=== PATIENT | male | born 1955 | race Caucasian/White ===

== ENCOUNTER → 2017-09-15 | Outpatient (CLI) | payer BC ==
[~2017-09-15] MED LIST: ADVAIR INHALER IH; ALB6.7R INH; ASPI81TA94 PO; CYC10 PO; HYDR500C2 PO; LOR5 PO; MOMR ENA; MON10 PO; ZYRTEC
== END ==
LOC: LAB 11:08
PROVIDERS: ATTEND Internal Medicine Hematology
DX: D75.1 Secondary polycythemia (principal)
CPT/HCPCS: 36415; 82040; 82247; 82310; 82374; 82435; 82565; 82947; 84075; 84132; 84155; 84295; 84450; 84460; 84520; 85027

== ENCOUNTER → 2017-09-22 | Outpatient (CLI) | payer BC | LOC: LAB 15:07 | PROVIDERS: ATTEND Nurse Practitioner Family | DX: B18.2 Chronic viral hepatitis C (principal) | CPT/HCPCS: 36415; 87522 ==

== ENCOUNTER → 2017-10-13 | Outpatient (CLI) | payer BC | LOC: LAB 15:53 | PROVIDERS: ATTEND Internal Medicine Hematology | DX: D75.1 Secondary polycythemia (principal) | CPT/HCPCS: 36415; 82040; 82247; 82310; 82374; 82435; 82565; 82947; 84075; 84132; 84155; 84295; 84450; 84460; 84520; 85027 ==

== ENCOUNTER → 2017-11-14 | Outpatient (CLI) | payer BC | LOC: LAB 15:02 | PROVIDERS: ATTEND Internal Medicine Hematology | DX: D75.1 Secondary polycythemia (principal) | CPT/HCPCS: 36415; 85027 ==

== ENCOUNTER 2017-11-17 14:19 | Outpatient (RCR) | payer BC ==
[2017-08-24 08:31] VITALS: BP 134/85
--- NOTE | 2017-08-24 18:00 | ONCOLOGY FOLLOW UP NOTE ---
EVENT DATE: August 24, 2017 DIAGNOSES 1. 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 Asthma CHIEF COMPLAINT The patient is here today for followup of his polycythemia vera. HEMATOLOGY HISTORY The patient is a 61-year-old male, who is followed by Dr. Manav Woods, and the patient was found to have erythrocytosis by blood test. His CBC on January 02, 2014 revealed a white blood cell count of 15.3, hemoglobin 20.1, hematocrit 61.7 , platelet count 491,000. The patient had a workup for erythrocytosis, including erythropoietin, which came at low normal at 2.8, and the normal starts from 2.6. Iron studies showed serum ferritin of 86, serum iron 62, total iron-binding capacity (TIBC) 409 and iron saturation 15%. JAK2 mutation analysis for exon 12 mutation and exon 13 mutation were negative but JAK2 mutation for V617F mutation was not done. JAK2 analysis came back positive for V617F mutation, confirming the diagnosis of polycythemia vera. The patient started treatment with hydroxyurea on December 19, 2014. HISTORY OF PRESENT ILLNESS Patient is here today for followup of his polycythemia vera on hydroxyurea therapy. He is complaining of cough expectoration and shortness of breath from bronchitis. He is weak, tired and fatigued from recent bronchitis. Other than that he is really stable. PAST MEDICAL HISTORY 1. Asthma 2. Erythrocytosis PAST SURGICAL HISTORY Tonsillectomy FAMILY HISTORY Negative for cancer or blood diseases. SOCIAL HISTORY The patient is with two sons. 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 He quit smoking 25 years ago after one pack a day for 12 to 15 years. He chews tobacco, one can per week, but denies any use of alcohol or illicit drugs. MEDICATIONS 1. Hydroxyurea 500 mg daily. 2. Nasonex 17 gm spray daily. 3. Aspirin 81 mg daily. 4. Singulair 10 mg daily. 5. Advair inhalation twice daily. ALLERGIES NO KNOWN DRUG ALLERGIES REVIEW OF SYSTEMS CONSTITUTIONAL: No appetite or weight change. No fever, chills or sweating. No recent infection. HEENT: Ears: No tinnitus or hearing problem. Nose: The patient has nasal discharge. Throat: No sore throat or mouth ulcers. Eyes: No diplopia or visual changes. RESPIRATORY: Patient has cough with expectoration and shortness of breath from recent bronchitis. CARDIOVASCULAR: No chest pain, orthopnea, or paroxysmal nocturnal dyspnea (PND) . No edema. No palpitations. GASTROINTESTINAL: He has constipation. GENITOURINARY: The patient has some prostatic symptoms. MUSCULOSKELETAL: She has pain in the feet occasionally. NEUROLOGICAL: No tingling or numbness in the hands or feet. No headaches or convulsions. HEMATOLOGIC/LYMPHATIC: He is weak, tired and fatigued. SKIN: No skin rash or lumps. PSYCHIATRIC: No anxiety or depression. PHYSICAL EXAMINATION GENERAL: Looks stable. Well-developed, well-nourished, and in no acute distress. VITAL SIGNS: Blood pressure 134/85, pulse 86 per minute, respirations 16 per minute, temperature 97.4, pulse ox 92% on room air. HEENT: Head: Atraumatic. No sinus tenderness to palpation. Eyes: No icterus or conjunctivitis. Mouth and throat: No oral thrush or mucositis. NECK: Supple. No cervical or supraclavicular lymphadenopathy. LUNGS: Clear to auscultation and percussion bilaterally. HEART: Regular rate and rhythm. No gallops, murmurs, clicks or rubs. ABDOMEN: Soft and lax. No tenderness. No hepatosplenomegaly. No masses. EXTREMITIES: No cyanosis, clubbing or edema. LYMPHATICS: No peripheral lymphadenopathy. NEUROLOGICAL: Conscious, alert and oriented times three. No focal motor or sensory deficits. PSYCHIATRIC: Mood and affect appear normal. SKIN: No skin rash, bruise or purpuric eruption. DIAGNOSTIC DATA CBC showed a white count of 9.6, hemoglobin 14.1, hematocrit 44.8, platelet counts 375,000. ASSESSMENT 1. Polycythemia vera with positive JAK2 mutation for V617F mutation. Patient started phlebotomy sessions January 10, 2014. He started hydroxyurea December 19, 2014. I am planning to increase the dose of hydroxyurea to 500 mg for five days, and 1000 mg for two days, as his current hematocrit is 44.8%. I am planning to continue aspirin 81 mg daily. I will see him again in three months with CBC and chem panel at that time. 2. Transaminitis. The patient had a history of alcohol abuse, but he was diagnosed recently with hepatitis C virus, and he is going to receive Harvoni very soon. PLAN 1. Hydroxyurea 500 mg for five days, and 1000 mg for two days. 2. Phlebotomize 500 mL of blood if hematocrit above 45%. 3. Continue baby aspirin 81 mg daily. 4. Patient to return in three months with CBC and chem panel. 5. Patient is to contact us for any new concerns or complaints. BLANCAD
[~2017-11-17] VITALS: Ht 177.8 cm; Wt 93.7 kg
[2017-11-17 14:34] VITALS: BP 132/98
== END 2017-11-21 ==
LOC: SPU 14:19
PROVIDERS: ATTEND Internal Medicine Hematology
DX: D45 Polycythemia vera (principal); B19.20 Unspecified viral hepatitis C without hepatic coma; J45.909 Unspecified asthma, uncomplicated; Z79.82 Long term (current) use of aspirin; Z79.899 Other long term (current) drug therapy; F17.220 Nicotine dependence, chewing tobacco, uncomplicated; R06.02 Shortness of breath; R05 Cough; R53.83 Other fatigue; R53.1 Weakness
CPT/HCPCS: 82040; 82247; 82310; 82374; 82435; 82565; 82947; 84075; 84132; 84155; 84295; 84450; 84460; 84520; 85014; 99212

== ENCOUNTER → 2017-12-20 | Outpatient (REF) | payer BC ==
[2017-12-20 10:29] LABS: PLATELET COUNT, AUTOMATED 256 K/uL (150-450)
== END ==
LOC: ZZSENDIN 10:17
PROVIDERS: ATTEND Physician Assistant
DX: R53.83 Other fatigue (principal)
CPT/HCPCS: 85025

== ENCOUNTER → 2018-01-04 | Outpatient (CLI) | payer BC ==
[~2018-01-04] MED LIST changes: +IOPAMIDOL 76% 50 ML INFUS BTL 50 ML ONE; +IOPAMIDOL 76% 75 ML INFUS BTL 75 ML ONE
--- NOTE | 2018-01-04 09:08 | RADIOLOGY IMAGING REPORT ---
FAC[place] [facility] [place] NAME: Sukhwinder Grijalva : 1955 MR: [id number] V: [id number] EXAM DATE: ORDERING PHYSICIAN: YONAS SCHWARTZ TECHNOLOGIST: Location: [facility] Patient: Sukhwinder Grijalva : 1955 Visit/Account:[id number] Date of Sevice: 01/04/2018 ABDOMEN/PELVIS WITH CONTRAST HISTORY: Abnormal liver function tests TECHNIQUE: Following administration of IV contrast contiguous axial images acquired through the abdom en/pelvis. Coronal and sagittal reformatting also performed. Dose Lowering Technique One of the following dose optimization techniques was utilized in the performance of this exam: Autom ated exposure control; adjustment of the mA and/or kV according to the patient's size; or use of an i terative reconstruction technique. Specific details can be referenced in the facility's radiology C T exam operational policy. CONTRAST: 75 mL Isovue-370 COMPARISON: December 29, 2011 FINDINGS: Visualized lung bases: 2 mm subpleural nodule anterolateral aspect of the left lower lobe appears st able Hepatobiliary: Liver is enlarged measuring 19 cm in length Spleen: Accessory splenule , spleen is borderline enlarged but unchanged Adrenals: Negative. Pancreas: Negative. Kidneys ureters or bladder: Kidneys appear unremarkable. There is irregular thickening of the [employer] ior aspect of the bladder wall best appreciated on the sagittal images Genitalia: Coarse calcification seen within the prostate gland GI: There is mild diverticulosis left-sided colon although no CT evidence of acute diverticulitis. The appendix is visualized and does not appear inflamed Vessels/spaces/nodes: Negative. Bones/soft tissues: No aggressive appearing bone lesions are seen. There is an umbilical hernia con taining fat Additional findings: None pertinent. IMPRESSION: Hepatomegaly Spleen is borderline enlarged but unchanged There is irregular thickening of the posterior aspect of the bladder wall best appreciated on the sag ittal images. Cystoscopy may be helpful depending upon the clinical presentation Mild diverticulosis left-sided colon although no CT evidence of acute diverticulitis Small umbilical hernia containing fat Report Dictated By: Alma Delia Mcintosh MD at 01/04/2018 8:56 AM Report E-Signed By: Alma Delia Mcintosh MD at 01/04/2018 9:05 AM WSN:[email or web address]
== END ==
LOC: CT 07:03
PROVIDERS: ATTEND Physician Assistant
DX: R94.5 Abnormal results of liver function studies (principal); K57.90 Diverticulosis of intestine, part unspecified, without perforation or abscess without bleeding; K42.9 Umbilical hernia without obstruction or gangrene
CPT/HCPCS: 74177; Q9967

== ENCOUNTER → 2018-01-12 | Outpatient (CLI) | payer BC ==
[~2018-01-12] MED LIST changes: -IOPAMIDOL 76% 50 ML INFUS BTL 50 ML ONE; -IOPAMIDOL 76% 75 ML INFUS BTL 75 ML ONE
== END ==
LOC: SPU 10:14
PROVIDERS: ATTEND Physician Assistant
DX: D75.1 Secondary polycythemia (principal)

== ENCOUNTER → 2018-01-23 | Outpatient (CLI) | payer BC | LOC: LAB 08:42 | PROVIDERS: ATTEND Nurse Practitioner Family | DX: B18.2 Chronic viral hepatitis C (principal) | CPT/HCPCS: 36415; 87522 ==

== ENCOUNTER 2018-02-16 15:15 | Outpatient (RCR) | payer BC ==
[2017-11-23 08:15] VITALS: BP 140/94
--- NOTE | 2017-11-23 16:04 | ONCOLOGY FOLLOW UP NOTE ---
EVENT DATE: November 23, 2017 DIAGNOSES 1. 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 Asthma CHIEF COMPLAINT The patient is here today for followup of his polycythemia vera. HEMATOLOGY HISTORY The patient is a 62-year-old male, who is followed by Dr. Manav Woods, and the patient was found to have erythrocytosis by blood test. His CBC on January 02, 2014 revealed a white blood cell count of 15.3, hemoglobin 20.1, hematocrit 61.7 , platelet count 491,000. The patient had a workup for erythrocytosis, including erythropoietin, which came at low normal at 2.8, and the normal starts from 2.6. Iron studies showed serum ferritin of 86, serum iron 62, total iron-binding capacity (TIBC) 409 and iron saturation 15%. JAK2 mutation analysis for exon 12 mutation and exon 13 mutation were negative but JAK2 mutation for V617F mutation was not done. JAK2 analysis came back positive for V617F mutation, confirming the diagnosis of polycythemia vera. The patient started treatment with hydroxyurea on December 19, 2014. HISTORY OF PRESENT ILLNESS Patient is here today for followup of his polycythemia vera on hydroxyurea. He is doing very fine currently and he is asymptomatic. He has been treated recently for hepatitis C virus with Harvoni, and as per patient, he completed his treatment about three weeks ago. PAST MEDICAL HISTORY 1. Asthma 2. Erythrocytosis PAST SURGICAL HISTORY Tonsillectomy FAMILY HISTORY Negative for cancer or blood diseases. SOCIAL HISTORY The patient is with two sons. 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 He quit smoking 25 years ago after one pack a day for 12 to 15 years. He chews tobacco, one can per week, but denies any use of alcohol or illicit drugs. MEDICATIONS 1. Hydroxyurea 500 mg once daily for four days and 1000 mg for three days. 2. Nasonex 17 gm spray daily. 3. Aspirin 81 mg daily. 4. Singulair 10 mg daily. 5. Advair inhalation twice daily. ALLERGIES NO KNOWN DRUG ALLERGIES REVIEW OF SYSTEMS CONSTITUTIONAL: No appetite or weight change. No fever, chills or sweating. No recent infection. HEENT: Ears: No tinnitus or hearing problem. Nose: The patient has nasal discharge. Throat: No sore throat or mouth ulcers. Eyes: No diplopia or visual changes. RESPIRATORY: Patient has cough with expectoration and shortness of breath from recent bronchitis. CARDIOVASCULAR: No chest pain, orthopnea, or paroxysmal nocturnal dyspnea (PND) . No edema. No palpitations. GASTROINTESTINAL: He has constipation. GENITOURINARY: The patient has some prostatic symptoms. MUSCULOSKELETAL: She has pain in the feet occasionally. NEUROLOGICAL: No tingling or numbness in the hands or feet. No headaches or convulsions. HEMATOLOGIC/LYMPHATIC: He is weak, tired and fatigued. SKIN: No skin rash or lumps. PSYCHIATRIC: No anxiety or depression. PHYSICAL EXAMINATION GENERAL: Looks stable. Well-developed, well-nourished, and in no acute distress. VITAL SIGNS: Blood pressure 140/94, pulse 84 per minute, respirations 16 per minute, temperature 97.1, pulse ox 91% on room air. HEENT: Head: Atraumatic. No sinus tenderness to palpation. Eyes: No icterus or conjunctivitis. Mouth and throat: No oral thrush or mucositis. NECK: Supple. No cervical or supraclavicular lymphadenopathy. LUNGS: Clear to auscultation and percussion bilaterally. HEART: Regular rate and rhythm. No gallops, murmurs, clicks or rubs. ABDOMEN: Soft and lax. No tenderness. No hepatosplenomegaly. No masses. EXTREMITIES: No cyanosis, clubbing or edema. LYMPHATICS: No peripheral lymphadenopathy. NEUROLOGICAL: Conscious, alert and oriented times three. No focal motor or sensory deficits. PSYCHIATRIC: Mood and affect appear normal. SKIN: No skin rash, bruise or purpuric eruption. DIAGNOSTIC DATA CBC showed a white count of 8000, hemoglobin 15.1, hematocrit 48.2, platelet counts 163,000. MCV 72.9. Chem panel totally normal except AST 91, ALT 179. ASSESSMENT 1. Polycythemia vera with positive JAK2 mutation for V617F mutation. Patient started phlebotomy sessions January 10, 2014, and he started hydroxyurea December 19, 2014. His hematocrit recently is high at 48.2%, and patient received a phlebotomy session at that time. He had some symptoms before the phlebotomy with tingling in his fingertips, which resolved after the phlebotomy. I am planning to increase his hydroxyurea so the patient will take 500 mg twice daily for three days, and once daily for four days. I am planning to see him again in three months with CBC and chem panel, and I will continue to do a phlebotomy if the hematocrit is above 45%. 2. Transaminitis. The patient was recently diagnosed with hepatitis C virus infection, and as per patient, he received Harvoni and completed the course about three weeks ago, but his AST and ALT remain high. AST 91 and ALT 179. I advised the patient to contact Dr. Woods and to follow with him for that. PLAN 1. Hydroxyurea 500 mg for four days, and 1000 mg for three days. 2. Phlebotomize 500 mL of blood if hematocrit is above 45%. 3. Continue baby aspirin 81 mg daily. 4. Patient to return in three months with CBC and chem panel. 5. Patient is to contact us for any new concerns or complaints. BLANCAD
[2017-12-18 15:32] VITALS: BP 147/109
[2017-12-19 15:09] VITALS: BP 155/101
[2018-01-12 12:36] VITALS: BP 133/95
[2018-01-12 12:44] LABS: PLATELET COUNT, AUTOMATED 166 K/uL (150-450)
[2018-01-19 15:44] LABS: PLATELET COUNT, AUTOMATED 634 K/uL (150-450)
[2018-01-29 15:27] LABS: PLATELET COUNT, AUTOMATED 479 K/uL (150-450)
[2018-02-16 15:49] VITALS: BP 150/98
== END 2018-02-20 ==
LOC: SPU 15:15
PROVIDERS: ATTEND Internal Medicine Hematology
DX: D45 Polycythemia vera (principal); B19.20 Unspecified viral hepatitis C without hepatic coma; J45.909 Unspecified asthma, uncomplicated; Z79.82 Long term (current) use of aspirin; Z79.899 Other long term (current) drug therapy; F17.220 Nicotine dependence, chewing tobacco, uncomplicated; R06.02 Shortness of breath; R05 Cough; R53.83 Other fatigue; R53.1 Weakness
CPT/HCPCS: 36415; 82040; 82247; 82310; 82374; 82435; 82565; 82947; 84075; 84132; 84155; 84295; 84450; 84460; 84520; 85014; 85025; 85027; 99195; 99212

== ENCOUNTER → 2018-02-16 | Outpatient (CLI) | payer BC | LOC: SPU 15:25 | PROVIDERS: ATTEND Nurse Practitioner Family | DX: R79.89 Other specified abnormal findings of blood chemistry (principal); B18.2 Chronic viral hepatitis C | CPT/HCPCS: 82040; 82247; 82248; 82728; 83516; 83550; 84075; 84155; 84450; 84460; 84466; 86038; 86705; 86706; 86708; 87340; 87522 ==

== ENCOUNTER 2018-04-26 13:44 | Outpatient (RCR) | payer BC ==
[2018-03-01 08:01] VITALS: BP 149/96
[2018-03-01 09:08] LABS: PLATELET COUNT, AUTOMATED 532 K/uL (150-450)
--- NOTE | 2018-03-01 10:01 | EL-TARABILY ONCOLOGY NOTE ---
EVENT DATE: March 01, 2018 DIAGNOSES 1. 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 Asthma CHIEF COMPLAINT The patient is here today for followup of his polycythemia vera. HEMATOLOGY HISTORY The patient is a 62-year-old male, who is followed by Dr. Manav Woods, and the patient was found to have erythrocytosis by blood test. His CBC on January 02, 2014 revealed a white blood cell count of 15.3, hemoglobin 20.1, hematocrit 61.7 , platelet count 491,000. The patient had a workup for erythrocytosis, including erythropoietin, which came at low normal at 2.8, and the normal starts from 2.6. Iron studies showed serum ferritin of 86, serum iron 62, total iron-binding capacity (TIBC) 409 and iron saturation 15%. JAK2 mutation analysis for exon 12 mutation and exon 13 mutation were negative but JAK2 mutation for V617F mutation was not done. JAK2 analysis came back positive for V617F mutation, confirming the diagnosis of polycythemia vera. The patient started treatment with hydroxyurea on December 19, 2014. HISTORY OF PRESENT ILLNESS Patient is here today for followup of his polycythemia vera with recent discontinuation of his hydroxyurea because of elevation of liver enzymes. The patient is currently asymptomatic. He denies any alcohol intake and he is sober for years. He was treated recently with hepatitis C virus with Harvoni. PAST MEDICAL HISTORY 1. Asthma 2. Erythrocytosis PAST SURGICAL HISTORY Tonsillectomy FAMILY HISTORY Negative for cancer or blood diseases. SOCIAL HISTORY The patient is with two sons. 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 He quit smoking 25 years ago after one pack a day for 12 to 15 years. He chews tobacco, one can per week, but denies any use of alcohol or illicit drugs. MEDICATIONS 1. Hydroxyurea 500 mg once daily for four days and 1000 mg for three days. 2. Nasonex 17 gm spray daily. 3. Aspirin 81 mg daily. 4. Singulair 10 mg daily. 5. Advair inhalation twice daily. ALLERGIES NO KNOWN DRUG ALLERGIES REVIEW OF SYSTEMS CONSTITUTIONAL: No appetite or weight change. No fever, chills or sweating. No recent infection. HEENT: Ears: No tinnitus or hearing problem. Nose: The patient has nasal discharge. Throat: No sore throat or mouth ulcers. Eyes: No diplopia or visual changes. RESPIRATORY: Patient has cough with expectoration and shortness of breath from recent bronchitis. CARDIOVASCULAR: No chest pain, orthopnea, or paroxysmal nocturnal dyspnea (PND) . No edema. No palpitations. GASTROINTESTINAL: He has constipation. GENITOURINARY: The patient has some prostatic symptoms. MUSCULOSKELETAL: She has pain in the feet occasionally. NEUROLOGICAL: No tingling or numbness in the hands or feet. No headaches or convulsions. HEMATOLOGIC/LYMPHATIC: He is weak, tired and fatigued. SKIN: No skin rash or lumps. PSYCHIATRIC: No anxiety or depression. PHYSICAL EXAMINATION GENERAL: Looks stable. Well-developed, well-nourished, and in no acute distress. VITAL SIGNS: Blood pressure 149/96, pulse 76 per minute, respirations 16 per minute, temperature 97, pulse ox 96% on room air. HEENT: Head: Atraumatic. No sinus tenderness to palpation. Eyes: No icterus or conjunctivitis. Mouth and throat: No oral thrush or mucositis. NECK: Supple. No cervical or supraclavicular lymphadenopathy. LUNGS: Clear to auscultation and percussion bilaterally. HEART: Regular rate and rhythm. No gallops, murmurs, clicks or rubs. ABDOMEN: Soft and lax. No tenderness. No hepatosplenomegaly. No masses. EXTREMITIES: No cyanosis, clubbing or edema. LYMPHATICS: No peripheral lymphadenopathy. NEUROLOGICAL: Conscious, alert and oriented times three. No focal motor or sensory deficits. PSYCHIATRIC: Mood and affect appear normal. SKIN: No skin rash, bruise or purpuric eruption. DIAGNOSTIC DATA CBC showed a white count of 10,000, hemoglobin 15.7, hematocrit 42.7, platelet counts 460,000. Chem panel totally normal except AST 77, ALT 119, transferrin 448 and ferritin 9. ASSESSMENT 1. Polycythemia vera with positive JAK2 mutation for V617F mutation. Patient started phlebotomy sessions January 10, 2014, and he started hydroxyurea December 19, 2014. His hematocrit currently is 42.7%. The patient did not have phlebotomy last week and did not check his blood count at same time. The patient was maintained on hydroxyurea, which was discontinued recently because of elevation of liver enzymes. I am planning to repeat his CBC, liver function test and alpha-fetoprotein today. 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 If the elevation of liver enzymes is due to his hepatitis C virus infection rather than the hydroxyurea then we may resume his hydroxyurea in the near future. In the meantime, we are going to check his blood count every two weeks and phlebotomize 500 mL of blood if hematocrit is above 45%. I will see him again in three months with CBC and chem panel and we will check his blood count every two weeks. 2. Transaminitis. This could be due to his hepatitis C virus infection. I am planning to repeat his chem panel and I will check also alpha-fetoprotein. PLAN 1. Continue to hold hydroxyurea. 2. CBC to be checked every two weeks. 3. Consider phlebotomy of 100 mL blood if hematocrit is above 45%. 4. Continue baby aspirin 81 mg daily. 5. Patient to return in three months with CBC and chem panel. 6. Patient is to contact us for any new concerns or complaints. ERIKA
[2018-03-14 15:24] LABS: PLATELET COUNT, AUTOMATED 484 K/uL (150-450)
[2018-04-18 14:30] VITALS: BP 146/109
[2018-04-26 14:01] LABS: PLATELET COUNT, AUTOMATED 617 K/uL (150-450)
[2018-05-22 10:46] LABS: PLATELET COUNT, AUTOMATED 663 K/uL (150-450)
== END 2018-05-29 ==
LOC: SPU 13:44
PROVIDERS: ATTEND Internal Medicine Hematology
DX: D45 Polycythemia vera (principal); R74.0 Nonspecific elevation of levels of transaminase and lactic acid dehydrogenase [LDH]; J45.909 Unspecified asthma, uncomplicated; F17.220 Nicotine dependence, chewing tobacco, uncomplicated; Z79.82 Long term (current) use of aspirin; Z79.899 Other long term (current) drug therapy; K59.00 Constipation, unspecified; R53.1 Weakness; R53.83 Other fatigue
CPT/HCPCS: 36415; 82040; 82105; 82247; 82310; 82374; 82435; 82565; 82947; 84075; 84132; 84155; 84295; 84450; 84460; 84520; 85025; 85027; 99195; 99212

== ENCOUNTER 2018-08-07 11:39 | Emergency (ER) | payer BC ==
--- NOTE | 2018-08-07 11:59 | ER Report ---
History and Physical Time Seen By MD: 11:42 Hx. of Stated Complaint: abd pain HPI/ROS CHIEF COMPLAINT: Abdominal pain HISTORY OF PRESENT ILLNESS: Patient is a 62-year-old male who presents to ED with complaint of abdominal pain that is worsened today. He states that he has been dealing with a umbilical hernia for the past year and states that he has had intermittent pain with this in the past. He states that he normally manually reduce his this himself without any issue but in the past day he has had more pain trying to do this and states that it contingently comes out. He denies any nausea, vomiting, diarrhea. He has not noted any fever. He hasn't not seen surgery for this hernia in the past. He states he does have a history of polycythemia vera and hepatitis C. REVIEW OF SYSTEMS: Constitutional: No fever, no chills. Eyes: No discharge. ENT: No sore throat. Cardiovascular: No chest pain, no palpitations. Respiratory: No cough, no shortness of breath. Gastrointestinal: See history of present illness. Genitourinary: No hematuria. Musculoskeletal: No back pain. Skin: No rashes. Neurological: No headache. Allergies: Coded Allergies: No Known Drug Allergies (Verified , 08/07/18) Home Meds Active Scripts Hydroxyurea (HYDROXYUREA) 500 Mg Capsule, 500 MG PO DAILY, #30 CAPSULE 9 Refills Prov:OLAYINKA MASTERSON [employer]PA[employer]ER-BC, ONC 07/11/16 Reported Medications Mometasone Furoate (NASONEX) 17 Gm [place], 17 GM DASHA DAILY, SPRAY 12/19/14 Aspirin (ASPIRIN) 81 Mg Tab.chew, 81 MG PO QDAY, TAB.CHEW TAKE 1 TABLET BY MOUTH EVERY DAY 08/22/14 Montelukast Sodium (Singulair) 10 Mg Tab, 10 MG PO QDAY, 0 Refills 06/15/11 Discontinued Reported Medications [Advair Inhaler] No Conflict Check, IH BID, 0 Refills 06/15/11 Hx Smoking: Yes Smoking Status: Former Smoker Exposure to Second Hand Smoke?: Yes Hx Substance Use Disorder: No Hx Alcohol Use: No Constitutional Vital Sign - Last 24 Hours 08/07/18 08/07/18 08/07/18 08/07/18 11:47 11:52 12:00 12:09 Temp 98.3 Pulse 80 91 Resp 12 B/P (MAP) 155/105 (122) 155/105 144/112 (123) Pulse Ox 94 92 O2 Delivery Room Air 08/07/18 08/07/18 08/07/18 08/07/18 12:30 12:39 12:55 13:00 Pulse 84 B/P (MAP) 135/94 (108) 134/97 (109) 140/100 (113) Pulse Ox 92 08/07/18 08/07/18 08/07/18 08/07/18 13:05 13:31 13:35 14:00 Pulse 82 75 B/P (MAP) 132/93 (106) 126/88 (101) Pulse Ox 89 92 08/07/18 08/07/18 08/07/18 08/07/18 14:05 14:10 14:30 14:40 Pulse 82 76 77 B/P (MAP) 127/91 (103) Pulse Ox 89 89 92 Physical Exam General Appearance: The patient is alert, has no immediate need for airway protection and no signs of toxicity. Patient appears to be in mild distress. ENT, Mouth: Mucous membranes are moist. Respiratory: There are no retractions, lungs are clear to auscultation. Cardiovascular: Regular rate and rhythm. Gastrointestinal: There is an umbilical hernia noted. Patient has some pain with palpation of this herniation as well as some right lower quadrant tenderness. No rebound or guarding is appreciated. Normal bowel sounds in all 4 quadrants. Skin: Warm and dry, no rashes. Musculoskeletal: Neck is supple non tender. Extremities are nontender, nonswollen and have full range of motion. DIFFERENTIAL DIAGNOSIS: After history and physical exam differential diagnosis was considered for abdominal pain including but not limited to appendicitis, cholecystitis, gastritis and urinary tract infection. Medical Decision Making Data Points Result Diagram: 08/07/18 1209 08/07/18 1209 Laboratory Hematology Test 08/07/18 12:09 08/07/18 12:51 Red Blood Count 7.15 M/uL (4.00-5.60) Mean Corpuscular Volume 61.8 fL (80.0-96.0) Mean Corpuscular Hemoglobin 19.1 pg (26.0-33.0) Mean Corpuscular Hemoglobin Concent 30.9 g/dL (32.0-36.0) Red Cell Distribution Width 23.3 % (11.5-14.5) Mean Platelet Volume 8.6 fL (7.2-11.1) Neutrophils (%) (Auto) 54.3 % (39.4-72.5) Lymphocytes (%) (Auto) 33.0 % (17.6-49.6) Monocytes (%) (Auto) 10.6 % (4.1-12.4) Eosinophils (%) (Auto) 1.6 % (0.4-6.7) Basophils (%) (Auto) 0.5 % (0.3-1.4) Nucleated RBC Relative Count (auto) 0.3 /100WBC Neutrophils # (Auto) 6.6 K/uL (2.0-7.4) Lymphocytes # (Auto) 4.0 K/uL (1.3-3.6) Monocytes # (Auto) 1.3 K/uL (0.3-1.0) Eosinophils # (Auto) 0.2 K/uL (0.0-0.5) Basophils # (Auto) 0.1 K/uL (0.0-0.1) Nucleated RBC Absolute Count (auto) 0.03 K/uL Peripheral Blood Smear Yes Y/N Sodium Level 139 mmol/L (137-145) Potassium Level 4.0 mmol/L (3.5-5.0) Chloride Level 106 mmol/L (98-107) Carbon Dioxide Level 22 mmol/L (22-30) Blood Urea Nitrogen 18 mg/dl (9-21) Creatinine 1.00 mg/dl (0.66-1.25) Glomerular Filtration Rate Calc > 60.0 Random Glucose 107 mg/dl (75-110) Calcium Level 8.9 mg/dl (8.4-10.2) Total Bilirubin 0.5 mg/dl (0.2-1.3) Aspartate Amino Transf (AST/SGOT) 89 U/L (0-35) Alanine Aminotransferase (ALT/SGPT) 150 U/L (0-56) Alkaline Phosphatase 65 U/L (0-126) Total Protein 7.2 g/dl (6.3-8.2) Albumin 3.8 g/dl (3.5-5.0) Lipase 99 U/L (23-300) Urine Color Yellow Urine Clarity Clear Urine pH 5.0 pH (4.8-9.5) Urine Specific [place] 1.017 Urine Protein Negative mg/dL (NEGATIVE) Urine Glucose (UA) Negative mg/dL (NEGATIVE) Urine Ketones Negative mg/dL (NEGATIVE) Urine Blood Negative (NEGATIVE) Urine Nitrite Negative (NEGATIVE) Urine Bilirubin Negative (NEGATIVE) Urine Urobilinogen Negative mg/dL (0.2-1.9) Urine Leukocyte Esterase Negative (NEGATIVE) Urine RBC None /HPF (0-2/HPF) Urine WBC 2 /HPF (0-5/HPF) Urine Squamous Epithelial Cells Few /LPF (</=FEW) Urine Bacteria Negative /HPF (NONE-FEW) Urine Mucus None /HPF (NONE-FEW) Chemistry Test 08/07/18 12:09 08/07/18 12:51 White Blood Count 12.2 k/uL (4.5-11.0) Red Blood Count 7.15 M/uL (4.00-5.60) Hemoglobin 13.7 g/dL (14.0-18.0) Hematocrit 44.2 % (42.0-52.0) Mean Corpuscular Volume 61.8 fL (80.0-96.0) Mean Corpuscular Hemoglobin 19.1 pg (26.0-33.0) Mean Corpuscular Hemoglobin Concent 30.9 g/dL (32.0-36.0) Red Cell Distribution Width 23.3 % (11.5-14.5) Platelet Count 263 K/uL (150-450) Mean Platelet Volume 8.6 fL (7.2-11.1) Neutrophils (%) (Auto) 54.3 % (39.4-72.5) Lymphocytes (%) (Auto) 33.0 % (17.6-49.6) Monocytes (%) (Auto) 10.6 % (4.1-12.4) Eosinophils (%) (Auto) 1.6 % (0.4-6.7) Basophils (%) (Auto) 0.5 % (0.3-1.4) Nucleated RBC Relative Count (auto) 0.3 /100WBC Neutrophils # (Auto) 6.6 K/uL (2.0-7.4) Lymphocytes # (Auto) 4.0 K/uL (1.3-3.6) Monocytes # (Auto) 1.3 K/uL (0.3-1.0) Eosinophils # (Auto) 0.2 K/uL (0.0-0.5) Basophils # (Auto) 0.1 K/uL (0.0-0.1) Nucleated RBC Absolute Count (auto) 0.03 K/uL Peripheral Blood Smear Yes Y/N Glomerular Filtration Rate Calc > 60.0 Calcium Level 8.9 mg/dl (8.4-10.2) Total Bilirubin 0.5 mg/dl (0.2-1.3) Aspartate Amino Transf (AST/SGOT) 89 U/L (0-35) Alanine Aminotransferase (ALT/SGPT) 150 U/L (0-56) Alkaline Phosphatase 65 U/L (0-126) Total Protein 7.2 g/dl (6.3-8.2) Albumin 3.8 g/dl (3.5-5.0) Lipase 99 U/L (23-300) Urine Color Yellow Urine Clarity Clear Urine pH 5.0 pH (4.8-9.5) Urine Specific [place] 1.017 Urine Protein Negative mg/dL (NEGATIVE) Urine Glucose (UA) Negative mg/dL (NEGATIVE) Urine Ketones Negative mg/dL (NEGATIVE) Urine Blood Negative (NEGATIVE) Urine Nitrite Negative (NEGATIVE) Urine Bilirubin Negative (NEGATIVE) Urine Urobilinogen Negative mg/dL (0.2-1.9) Urine Leukocyte Esterase Negative (NEGATIVE) Urine RBC None /HPF (0-2/HPF) Urine WBC 2 /HPF (0-5/HPF) Urine Squamous Epithelial Cells Few /LPF (</=FEW) Urine Bacteria Negative /HPF (NONE-FEW) Urine Mucus None /HPF (NONE-FEW) Urinalysis Test 08/07/18 12:51 Urine Color Yellow Urine Clarity Clear Urine pH 5.0 pH (4.8-9.5) Urine Specific [place] 1.017 Urine Protein Negative mg/dL (NEGATIVE) Urine Glucose (UA) Negative mg/dL (NEGATIVE) Urine Ketones Negative mg/dL (NEGATIVE) Urine Blood Negative (NEGATIVE) Urine Nitrite Negative (NEGATIVE) Urine Bilirubin Negative (NEGATIVE) Urine Urobilinogen Negative mg/dL (0.2-1.9) Urine Leukocyte Esterase Negative (NEGATIVE) Urine RBC None /HPF (0-2/HPF) Urine WBC 2 /HPF (0-5/HPF) Urine Squamous Epithelial Cells Few /LPF (</=FEW) Urine Bacteria Negative /HPF (NONE-FEW) Urine Mucus None /HPF (NONE-FEW) EKG/Imaging Imaging CT Abdomen/Pelvis: IMPRESSION: The appendix is visualized and does not appear inflamed There is a moderate amount of fecal material in the right-sided the colon which may be related to constipation. Diverticulosis left-sided colon Periumbilical hernia containing fat The head the pancreas appears prominent, more so than on the prior study. There is no surrounding inflammatory change or pancreatic duct dilatation. Depending upon the degree of clinical concern further evaluation of the pancreas with ultrasound or MRCP may be helpful Hepatomegaly Report Dictated By: Alma Delia Mcintosh MD at 08/07/2018 2:15 PM Report E-Signed By: Alma Delia Mcintosh MD at 08/07/2018 2:27 PM ED Course/Re-evaluation ED Course Did manually reduce the umbilical hernia on initial exam. He did have some pain relief with this but continues to have some right lower quadrant tenderness. Will obtain labs. 08/07/2018 2:55:22 pm reviewed all labs with patient. He does have mild marlyn kocytosis. He also has elevated RBCs secondary to this by septemia a and has elevated liver enzymes are quite mild and likely related to his untreated hepatitis C. CT of abdomen and pelvis did reveal no sign of appendicitis and only fat containing hernia of the umbilicus. He did have large amount of stool and right colon which may be causing this pain from constipation. Discussed this with him. Decision to Disposition Date: Aug 07, 2018 Decision to Disposition Time: 14:58 Depart Departure Latest Vital Signs Vital Signs Date Time Temp Pulse Resp B/P (MAP) Pulse Ox O2 Delivery O2 Flow Rate FiO2 08/07/18 14:40 77 92 08/07/18 14:30 127/91 (103) 08/07/18 11:52 98.3 12 Room Air Impression: Primary Impression: Abdominal pain Additional Impressions: Constipation Leukocytosis Umbilical hernia Condition: Improved Disposition: HOME OR SELF-CARE Referrals: JC GUTHRIE MD (PCP) JC EPPS MD Patient Instructions: Abdominal Pain (ED), Constipation (ED), Leukocytosis (ED), Umbilical Hernia (ED) Additional Instructions: Stay well-hydrated. May take stool softeners and MiraLAX. Follow-up with primary care provider in 2-3 days. If having any worsening or concerning symptoms may return to the emergency department. Follow-up with Gen. surgery for umbilical hernia. Problem Qualifiers Primary Impression: Abdominal pain Abdominal location: lower abdomen, unspecified Qualified Codes: R10.30 - Lower abdominal pain, unspecified Additional Impressions: Constipation Constipation type: unspecified constipation type Qualified Codes: K59.00 - Constipation, unspecified Leukocytosis Leukocytosis type: unspecified Qualified Codes: D72.829 - Elevated white blood cell count, unspecified Umbilical hernia Obstruction and gangrene presence: without obstruction or gangrene Qualified Codes: K42.9 - Umbilical hernia without obstruction or gangrene QUINTON DONG PA-C Aug 07, 2018 11:59
[2018-08-07 12:16] LABS: PLATELET COUNT, AUTOMATED 263 K/uL (150-450)
[2018-08-07] MEDS ORDERED: IOPAMIDOL 76% 50 ML INFUS BTL 100 ML ONE (13:10)
--- NOTE | 2018-08-07 14:32 | RADIOLOGY IMAGING REPORT ---
FACILITY: [facility] - [place] PATIENT NAME: Sukhwinder Grijalva : 1955 MR: [id number] V: [id number] EXAM DATE: ORDERING PHYSICIAN: QUINTON DONG TECHNOLOGIST: Location: [facility] [place] Patient: Sukhwinder Grijalva : 1955 Visit/Account:[id number] Date of Sevice: 08/07/2018 ABDOMEN/PELVIS WITH CONTRAST HISTORY: RLQ pain, umbilical hernia pain, leukocytosis TECHNIQUE: Following administration of IV contrast contiguous axial images acquired through the abdom en/pelvis. Coronal and sagittal reformatting also performed.Dose Lowering Technique One of the following dose optimization techniques was utilized in the performance of this exam: Autom ated exposure control; adjustment of the mA and/or kV according to the patient's size; or use of an i terative reconstruction technique. Specific details can be referenced in the facility's radiology C T exam operational policy. CONTRAST: 75 mL Isovue-370 COMPARISON: January 04, 2018 FINDINGS: Visualized lung bases: 2 mm noncalcified subpleural nodule lateral aspect left lower lobe remains st able Hepatobiliary: The liver is enlarged measuring 19.8 cm in length minimally increased Spleen: Negative. Adrenals: Negative. Pancreas: The head the pancreas appears prominent, more so than on the prior study . There is no e vidence of pancreatic ductal dilatation Kidneys ureters or bladder: Negative. Genitalia: Coarse calcifications are seen within the prostate gland. There is mild impingement upon the floor the bladder by the prostate GI: There is mild diverticulosis left-sided colon although no CT evidence of acute diverticulitis . The appendix is visualized and does not appear inflamed. Is a moderate amount of fecal material in the right-sided the colon which may be related to constipation Vessels/spaces/nodes: Negative. Bones/soft tissues: There is a periumbilical hernia containing fat. There are mild spondylotic bailey ges of the lumbar spine Additional findings: None pertinent. IMPRESSION: The appendix is visualized and does not appear inflamed There is a moderate amount of fecal material in the right-sided the colon which may be related to con stipation. Diverticulosis left-sided colon Periumbilical hernia containing fat The head the pancreas appears prominent, more so than on the prior study. There is no surrounding in flammatory change or pancreatic duct dilatation. Depending upon the degree of clinical concern furth er evaluation of the pancreas with ultrasound or MRCP may be helpful Hepatomegaly Report Dictated By: Alma Delia Mcintosh MD at 08/07/2018 2:15 PM Report E-Signed By: Alma Delia Mcintosh MD at 08/07/2018 2:27 PM WSN:[email or web address]
[2018-08-07 15:00] VITALS: BP 132/93
== END 2018-08-07 15:20 | disposition home or self-care (01) ==
LOC: ER 11:40
DX: K42.9 Umbilical hernia without obstruction or gangrene (principal); K59.00 Constipation, unspecified; D72.829 Elevated white blood cell count, unspecified
CPT/HCPCS: 74177; 81001; 83690; 85025; 99284; Q9967; 82040; 82247; 82310; 82374; 82435; 82565; 82947; 84075; 84132; 84155; 84295; 84450; 84460; 84520

== ENCOUNTER 2018-08-30 11:30 | Outpatient (RCR) | payer BC ==
[2018-06-06 08:44] LABS: PLATELET COUNT, AUTOMATED 605 K/uL (150-450)
[2018-06-06 08:47] VITALS: BP 143/89
[2018-06-21 11:44] VITALS: BP 130/92
[2018-06-21 12:00] LABS: PLATELET COUNT, AUTOMATED 735 K/uL (150-450)
--- NOTE | 2018-06-22 02:01 | EL-TARABILY ONCOLOGY NOTE ---
EVENT DATE: June 21, 2018 DIAGNOSES 1. 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 Asthma CHIEF COMPLAINT The patient is here today for followup of his polycythemia vera. HEMATOLOGY HISTORY The patient is a 62-year-old male, who is followed by Dr. Manav Woods, and the patient was found to have erythrocytosis by blood test. His CBC on January 02, 2014 revealed a white blood cell count of 15.3, hemoglobin 20.1, hematocrit 61.7, platelet count 491,000. The patient had a workup for erythrocytosis, including erythropoietin, which came at low normal at 2.8, and the normal starts from 2.6. Iron studies showed serum ferritin of 86, serum iron 62, total iron-binding capacity (TIBC) 409 and iron saturation 15%. JAK2 mutation analysis for exon 12 mutation and exon 13 mutation were negative but JAK2 mutation for V617F mutation was not done. JAK2 analysis came back positive for V617F mutation, confirming the diagnosis of polycythemia vera. The patient started treatment with hydroxyurea on December 19, 2014. HISTORY OF PRESENT ILLNESS Patient is here today for followup of his polycythemia vera after discontinuation of his hydroxyurea with elevation of his liver enzymes. He is currently asymptomatic. He has been seen at [facility] in [place] for elevated liver enzymes, and the patient was found to have hepatitis C virus infection. He is complaining of night sweats. He has occasional epistaxis. He has cough with expectoration and shortness of breath. He is weak, tired, and fatigued. PAST MEDICAL HISTORY 1. Asthma 2. Erythrocytosis PAST SURGICAL HISTORY Tonsillectomy FAMILY HISTORY Negative for cancer or blood diseases. SOCIAL HISTORY The patient is with two sons. 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 He quit smoking 25 years ago after one pack a day for 12 to 15 years. He chews tobacco, one can per week, but denies any use of alcohol or illicit drugs. MEDICATIONS 1. Hydroxyurea 500 mg once daily for four days and 1000 mg for three days. 2. Nasonex 17 gm spray daily. 3. Aspirin 81 mg daily. 4. Singulair 10 mg daily. 5. Advair inhalation twice daily. ALLERGIES NO KNOWN DRUG ALLERGIES REVIEW OF SYSTEMS CONSTITUTIONAL: He has night sweats. HEENT: Ears: No tinnitus or hearing problem. Nose: He has occasional epistaxis. Throat: No sore throat or mouth ulcers. Eyes: No diplopia or visual changes. RESPIRATORY: He has cough with expectoration and shortness of breath. CARDIOVASCULAR: No chest pain, orthopnea, or paroxysmal nocturnal dyspnea (PND). No edema. No palpitations. GASTROINTESTINAL: No nausea or vomiting. No diarrhea or constipation. No change in bowel movements. No heartburn or swallowing difficulties. No abdominal pain. No jaundice. No hematemesis, melena or rectal bleeding. GENITOURINARY: No hematuria or dysuria. MUSCULOSKELETAL: No pain in the muscles, joints or bones. NEUROLOGICAL: No tingling or numbness in the hands or feet. No headaches or convulsions. HEMATOLOGIC/LYMPHATIC: He is weak, tired, and fatigued. SKIN: No skin rash or lumps. PSYCHIATRIC: No anxiety or depression. PHYSICAL EXAMINATION GENERAL: Looks stable. Well-developed, well-nourished, and in no acute distress. VITAL SIGNS: Blood pressure 130/92, pulse 74 per minute, respirations 16 per minute, temperature 97.3, pulse oximetry 94% on room air. HEENT: Head: Atraumatic. No sinus tenderness to palpation. Eyes: No icterus or conjunctivitis. Mouth and throat: No oral thrush or mucositis. NECK: Supple. No cervical or supraclavicular lymphadenopathy. LUNGS: Clear to auscultation and percussion bilaterally. HEART: Regular rate and rhythm. No gallops, murmurs, clicks or rubs. ABDOMEN: Soft and lax. No tenderness. No hepatosplenomegaly. No masses. EXTREMITIES: No cyanosis, clubbing or edema. LYMPHATICS: No peripheral lymphadenopathy. NEUROLOGICAL: Conscious, alert and oriented times three. No focal motor or sensory deficits. PSYCHIATRIC: Mood and affect appear normal. SKIN: No skin rash, bruise or purpuric eruption. DIAGNOSTIC DATA CBC showed a white count of 15.3, hemoglobin 12.9, hematocrit 42, platelets 735,000. Chem panel totally normal except for blood sugar of 134, AST 79, ALT 107. ASSESSMENT 1. Polycythemia vera with positive JAK2 mutation for V617F mutation. Patient started phlebotomy sessions January 10, 2014, and he started hydroxyurea December 19, 2014. His current hematocrit is 42%. Patient is off hydroxyurea, given that his liver enzymes were high and hydroxyurea was thought to be the reason for that, but patient after evaluation was found to have hepatitis C virus infection, and he is followed by [facility]. His platelet count currently is on the rise. It is 735,000. I am planning to resume back hydroxyurea at 500 mg daily, and I will check his CBC and chem panel in two weeks, and I will see him in a month for CBC and chem panel again. 2. Elevated liver enzymes. Patient has a hepatitis C virus infection, and he is followed by [facility] for that. PLAN 1. Hydroxyurea 500 mg daily. 2. CBC and chem panel to be checked every two weeks. 3. Patient to return in one month for CBC and chem panel. 4. Patient to contact us for any new concerns or complaints. MTDD
[2018-07-26 11:27] VITALS: BP 132/91
--- NOTE | 2018-07-26 21:49 | EL-TARABILY ONCOLOGY NOTE ---
EVENT DATE: July 26, 2018 DIAGNOSES 1. Polycythemia vera with positive JAK2 V617F mutation. 2. Asthma. CHIEF COMPLAINT The patient is here today for followup of his polycythemia vera. HEMATOLOGY HISTORY The patient is a 62-year-old male who is followed by Dr. Manav Woods, and the patient was found to have erythrocytosis by blood test. His CBC on January 02, 2014, revealed a white blood cell count of 15.3, hemoglobin 20.1, hematocrit 61.7, platelet count 491,000. The patient had a workup for erythrocytosis including erythropoietin, which came at low normal at 2.8, and the normal starts from 2.6. Iron studies showed serum ferritin of 86, serum iron 62, total iron- binding capacity (TIBC) 409, and iron saturation 15%. JAK2 mutation analysis for exon 12 mutation and exon 13 mutation were negative, but JAK2 mutation for V617F mutation was not done. JAK2 analysis came back positive for V617F mutation, confirming the diagnosis of polycythemia vera. The patient started treatment with hydroxyurea on December 19, 2014. HISTORY OF PRESENT ILLNESS Patient is here today for followup of his polycythemia. Apart from having night sweating, patient is really doing very well. He is going to see [facility] next month for management of his hepatitis C virus infection. PAST MEDICAL HISTORY 1. Asthma. 2. Erythrocytosis. PAST SURGICAL HISTORY Tonsillectomy. FAMILY HISTORY Negative for cancer or blood diseases. SOCIAL HISTORY The patient is with two sons. 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 He quit smoking 25 years ago after one pack a day for 12 to 15 years. He chews tobacco, one can per week, but denies any use of alcohol or illicit drugs. MEDICATIONS 1. Hydroxyurea 500 mg once daily for four days and 1000 mg for three days. 2. Nasonex 17 gm spray daily. 3. Aspirin 81 mg daily. 4. Singulair 10 mg daily. 5. Advair inhalation twice daily. ALLERGIES No known drug allergies. REVIEW OF SYSTEMS CONSTITUTIONAL: No appetite or weight change. No fever or chills. He has night sweats. No recent infection. HEENT: Ears: No tinnitus or hearing problem. Nose: No nasal discharge or epistaxis. Throat: No sore throat or mouth ulcers. Eyes: No diplopia or visual changes. RESPIRATORY: No shortness of breath. No cough, expectoration, or hemoptysis. CARDIOVASCULAR: No chest pain, orthopnea, or paroxysmal nocturnal dyspnea (PND). No edema. No palpitations. GASTROINTESTINAL: No nausea or vomiting. No diarrhea or constipation. No change in bowel movements. No heartburn or swallowing difficulties. No abdominal pain. No jaundice. No hematemesis, melena, or rectal bleeding. GENITOURINARY: No hematuria or dysuria. MUSCULOSKELETAL: No pain in the muscles, joints, or bones. NEUROLOGICAL: No tingling or numbness in the hands or feet. No headaches or convulsions. HEMATOLOGIC/LYMPHATIC: No bleeding or easy bruising. No weakness or fatigue. No enlarged lymph nodes. SKIN: No skin rash or lumps. PSYCHIATRIC: No anxiety or depression. PHYSICAL EXAMINATION GENERAL: Looks stable. Well developed, well nourished, and in no acute distress. VITAL SIGNS: Blood pressure 132/91, pulse 96 per minute, respirations 16 per minute, temperature 97, pulse ox 91% on room air. HEENT: Head: Atraumatic. No sinus tenderness to palpation. Eyes: No icterus or conjunctivitis. Mouth and Throat: No oral thrush or mucositis. NECK: Supple. No cervical or supraclavicular lymphadenopathy. LUNGS: Clear to auscultation and percussion bilaterally. HEART: Regular rate and rhythm. No gallops, murmurs, clicks, or rubs. ABDOMEN: Soft and lax. No tenderness. No hepatosplenomegaly. No masses. EXTREMITIES: No cyanosis, clubbing, or edema. LYMPHATICS: No peripheral lymphadenopathy. NEUROLOGICAL: Conscious, alert, and oriented times three. No focal motor or sensory deficits. PSYCHIATRIC: Mood and affect appear normal. SKIN: No skin rash, bruise, or purpuric eruption. DIAGNOSTIC DATA CBC showed white count 9.4, hemoglobin 13.7, hematocrit 44.4%, and platelets 507,000. Chem panel is totally normal except ALT 135, AST 119. Other parameters are normal. ASSESSMENT 1. Polycythemia vera with positive JAK2 mutation for V617F mutation. Patient started phlebotomy sessions January 10, 2014, and he started hydroxyurea December 19, 2014. His current hematocrit is 44.4%. His platelet count is getting better after resuming back his hydroxyurea. It dropped from 735,000 and currently 507,000. White count has also normalized with hydroxyurea. I am planning to continue hydroxyurea at the same dose of 500 mg daily. I will see him again in another month with CBC, chemistry panel, and I will continue the same dose of hydroxyurea 500 mg daily. Patient is going to see [facility] next month for his hepatitis C virus infection treatment. I will await their plan. 2. Hepatitis C virus infection with elevated liver enzymes. Patient is followed by [facility] for that. PLAN 1. Hydroxyurea 500 mg daily. 2. Patient to return in one month for CBC and chem panel. 3. Patient to contact us for any new concern or complaints. MTDD
[2018-08-30 11:31] VITALS: BP 134/90
[2018-09-20] MEDS ORDERED: LISI5TAB25 PO (13:05)
== END 2018-09-04 ==
LOC: ONC 11:30
PROVIDERS: ATTEND Internal Medicine Hematology
DX: D45 Polycythemia vera (principal); J45.909 Unspecified asthma, uncomplicated; B19.20 Unspecified viral hepatitis C without hepatic coma; R53.1 Weakness; R53.83 Other fatigue; Z72.0 Tobacco use; R74.0 Nonspecific elevation of levels of transaminase and lactic acid dehydrogenase [LDH]
CPT/HCPCS: 36415; 82040; 82247; 82310; 82374; 82435; 82565; 82947; 84075; 84132; 84155; 84295; 84450; 84460; 84520; 85025; 99212

== ENCOUNTER → 2018-08-31 | Outpatient (CLI) | payer BC ==
--- NOTE | 2018-08-31 12:50 | RADIOLOGY IMAGING REPORT ---
FACILITY: [facility] [place] PATIENT NAME: Sukhwinder Grijalva : 1955 MR: [id number] V: [id number] EXAM DATE: ORDERING PHYSICIAN: [facility] TECHNOLOGIST: Location: [facility] - [place] Patient: Sukhwinder Grijalva : 1955 Visit/Account:[id number] Date of Sevice: 08/31/2018 EXAMINATION: Abdominal ultrasound complete HISTORY: Chronic hepatitis C COMPARISON: CT abdomen and pelvis August 07, 2018 FINDINGS: Gallbladder: No stones, wall thickening, pericholecystic fluid or sonographic Boo sign. Liver: Hepatomegaly. There is a coarse echotexture to the liver which can be seen with fatty infiltr ation other infiltrative process Common duct: Normal measuring 2.2 mm. Pancreas: The pancreas appears echogenic although discrete mass is not demonstrated Spleen: Normal in size and echogenicity measuring 11.6 cm in length. Kidneys: Normal in size and echogenicity, the right measures 10.2 cm in length, and the left 11.2 cm . No hydronephrosis. Upper abdominal aorta and IVC: Negative. Ascites: None. IMPRESSION: Hepatomegaly with coarse echotexture throughout the liver which can be seen with fatty infiltration o r other infiltrative process The pancreas appears echogenic although discrete mass not demonstrated Report Dictated By: Alma Delia Mcintosh MD at 08/31/2018 12:30 PM Report E-Signed By: Alma Delia Mcintosh MD at 08/31/2018 12:45 PM WSN:[email or web address]
== END ==
LOC: US 03:43
PROVIDERS: ATTEND Internal Medicine
DX: R16.0 Hepatomegaly, not elsewhere classified (principal); B18.2 Chronic viral hepatitis C
CPT/HCPCS: 76700

== ENCOUNTER 2018-09-12 16:18 | Outpatient (RCR) | payer BC | END 2018-09-13 17:46 | disposition home or self-care (01) | LOC: ONC 16:18 | PROVIDERS: ATTEND Internal Medicine Hematology | DX: D45 Polycythemia vera (principal); J45.909 Unspecified asthma, uncomplicated; B19.20 Unspecified viral hepatitis C without hepatic coma; R53.1 Weakness; R53.83 Other fatigue; Z72.0 Tobacco use ==

== ENCOUNTER → 2018-10-31 | Outpatient (CLI) | payer BC ==
[~2018-10-31] MED LIST changes: +CETI-176 PO; +DUL100/5PT INH; +LISI5TAB25 PO
--- NOTE | 2018-10-31 14:48 | RADIOLOGY IMAGING REPORT ---
FACILITY: [facility] - [place] PATIENT NAME: Sukhwinder Grijalva : 1955 MR: [id number] V: [id number] EXAM DATE: ORDERING PHYSICIAN: YONAS SCHWARTZ TECHNOLOGIST: Location: [facility] Patient: Sukhwinder Grijalva : 1955 Visit/Account:[id number] Date of Sevice: 10/31/2018 US SINGLE ORGAN INDICATION: Umbilical hernia with pain and lump. COMPARISON: CT abdomen pelvis 08/07/2018. FINDINGS: Transabdominal ultrasound images of the umbilicus region. There is a moderate umbilical h ernia containing fat and soft tissue with some small amount of blood flow present. No peristalsis is seen within the hernia. This measures approximately 4.6 x 2.8 x 4.7 cm. There appears to be a small a mount of fluid in the hernia. No other focal abnormality. IMPRESSION: Prominent umbilical hernia containing fat and soft tissue with small amount of blood flow . This likely represent bowel in the hernia. No peristalsis is seen. The small amount fluid in the he rnia as well. At this point cannot exclude incarceration. I called report to YONAS SCHWARTZ at 10/31/2018 2:43 PM. Report Dictated By: Sohail Pinto at 10/31/2018 2:35 PM Report E-Signed By: Sohail Pinto at 10/31/2018 2:44 PM WSN:[id number]
== END ==
LOC: US 13:49
PROVIDERS: ATTEND Physician Assistant
DX: K42.0 Umbilical hernia with obstruction, without gangrene (principal)
CPT/HCPCS: 76705

== ENCOUNTER 2018-11-02 00:12 | Day surgery (SDC) | payer BC ==
[~2018-11-02] VITALS: Ht 177.8 cm; Wt 81.6 kg
[2018-11-02] MEDS ORDERED: DEXAMETHASONE SOD 4 MG/ML VIAL ONE (12:51)
[2018-11-02] MEDS ORDERED: ONDANSETRON 4 MG/2 ML VIAL ONE (12:51)
[2018-11-02] MEDS ORDERED: ROCURONIUM BROM 10 MG/ML 10 ML ONE (12:51)
[2018-11-02] MEDS ORDERED: SUGAMMADEX SOD 200 MG/2 ML SDV ONE (12:51)
[2018-11-02] MEDS ORDERED: PROPOFOL EMUL(*) 10MG/ML 20 ML 20 ML ONE (12:51)
[2018-11-02] MEDS ORDERED: METOCLOPRAMIDE 10 MG/2 ML SDV ONE (12:51)
[2018-11-02] MEDS ORDERED: LIDOCAINE MPF 1% 5 ML VIAL ONE (12:51)
[2018-11-02 14:39] VITALS: BP 134/93
[2018-11-02] MEDS ORDERED: ceFAZolin(*) 2GM/D5W 50ML 50 ML IVPB ONE (14:40)
[2018-11-02] MEDS ORDERED: MIDAZOLAM 2 MG/2 ML VIAL IVP PRN (14:40)
[2018-11-02] MEDS ORDERED: LIDOCAINE/SOD BICARB 8.4% SYR ID ONE (14:40)
[2018-11-02] MEDS ORDERED: NORMOSOL R SOLN(*) 1000 ML BAG 1,000 ML IV PRN (14:40)
[2018-11-02] MEDS ORDERED: FAMOTIDINE 20 MG TAB PO ONE (14:40)
--- NOTE | 2018-11-02 14:51 | EKG ---
FACILITY: [facility] PATIENT NAME: MARK RANDALL : [id number] MR: [id number] V: [id number] EXAM DATE: ORDERING PHYSICIAN: JC NAVARRETE TECHNOLOGIST: Test Reason : Pre-op Blood Pressure : / mmHG Vent. Rate : 065 BPM Atrial Rate : 065 BPM P-R Int : 136 ms QRS Dur : 080 ms QT Int : 380 ms P-R-T Axes : 068 047 047 degrees QTc Int : 395 ms Normal sinus rhythm Normal ECG No previous ECGs available Confirmed by Prosper Felder ([id number]) on 11/02/2018 7:28:41 PM Referred By: Confirmed By:Prosper Pandey
[2018-11-02] MEDS ORDERED: fentaNYL CITR 100 MCG/2 ML AMP ONE ×2 (15:02→18:22)
[2018-11-02] MEDS ORDERED: OXYC-373 PO (15:58)
[2018-11-02] MEDS ORDERED: DOCU-416 PO (15:58)
[2018-11-02] MEDS ORDERED: NEOMYCIN/POLYMYX/BACITR 30 GM TP ONE (17:24)
--- NOTE | 2018-11-02 18:18 | Short(Outpt) Discharge Summary ---
Discharge Summary Reason for Hosp/Final Diag: (1) Umbilical hernia Status: Chronic Hospital Course & Plan: Incarcerated umbilical hernia repaired without mesh Departure Discharge to: Home, Self Care Discharge Instructions Home Meds Active Scripts Docusate Sodium (COLACE) 100 Mg Capsule, 1 CAP PO BID, #30 CAP 0 Refills TAKE WITH A FULL GLASS OF WATER Prov:JC EPPS MD 11/02/18 Oxycodone Hcl/Acetaminophen (OXYCODONE-ACETAMINOPHEN 5-325) 1 Each Tablet, 1 TAB PO Q4H PRN for PAIN, #20 TAB 0 Refills Prov:JC EPPS MD 11/02/18 Hydroxyurea (HYDROXYUREA) 500 Mg Capsule, 500 MG PO DAILY, #30 CAPSULE 9 Refills Prov:OLAYINKA MASTERSON REGULATORY COMPLIANCE COORDINATOR-BC, ONC 07/11/16 Reported Medications Cetirizine Hcl (ZYRTEC) 10 Mg Tablet, 10 MG PO QDAY PRN for ALLERGY SYMPTOMS, TAB 10/31/18 Mometasone/Formoterol (DULERA 100 MCG/5 MCG INHALER) 13 Gm Inh, 1-2 PUFF INH BID, INH 10/31/18 Lisinopril (LISINOPRIL) 5 Mg Tablet, 1 TAB PO QDAY, TAB 09/20/18 Mometasone Furoate (NASONEX) 17 Gm Collins, 17 GM DASHA DAILY, SPRAY 12/19/14 Aspirin (ASPIRIN) 81 Mg Tab.chew, 81 MG PO QDAY, TAB.CHEW TAKE 1 TABLET BY MOUTH EVERY DAY 08/22/14 Montelukast Sodium (Singulair) 10 Mg Tab, 10 MG PO QDAY, 0 Refills 06/15/11 Follow up Referrals: General Surgery - 11/16/18 @ Surgery, General with JC EPPS MD You have a follow up appointment scheduled with Dr. Epps on Friday, November 16, 2018, at 11:45am. Diet: Regular Activity: No Heavy Lifting Special Instructions: You may remove the white surgical dressing on 11/04/18, then you can shower. After showering, leave the incision open to air but leave the steristrips in place until they fall off on their own. Do not immerse the incision for 2 weeks. Avoid any activity that involves straining or lifting more than 10 pounds for 6 weeks after surgery (until December 14). Wear the abdominal binder at all times other than while bathing/showering for 30 days after surgery. If you have to cough, sneeze, or otherwise strain apply your hand over your belly button and press in to apply counter pressure to protect the hernia repair. Problem Qualifiers (1) Umbilical hernia: Obstruction and gangrene presence: without obstruction or gangrene Qualified Codes: K42.9 - Umbilical hernia without obstruction or gangrene JC EPPS MD Nov 02, 2018 18:18
--- NOTE | 2018-11-02 18:29 | Post Operative Progress Note ---
Post Operative Progress Note Date: Nov 02, 2018 Time: 18:19 Surgeon: Jayjay Dictation number: [id number] Anesthesia: GETA by Dr. Martines Pre-Op Diagnosis: Incarcerated umbilical hernia Post-Op Diagnosis: Incarcerated umbilical hernia with strangulation of omentum Findings: Omentum in hernia sac was very dusky and so it was removed Procedure(s): Open UH repair, no mesh Resection of small amount of strangulated omentum Specimen Removed:(May be N/A): Hernia sac and contents Omentum Complications: None Fluids: See anesthesia record Estimated Blood Loss: Minimal Date OP Note Dictated: Nov 02, 2018 Time OP Note Dictated: 18:21 JC EPPS MD Nov 02, 2018 18:29
--- NOTE | 2018-11-02 19:14 | OPERATIVE REPORT 1 ---
EVENT DATE: November 02, 2018 SURGEON: Manav Ro MD ANESTHESIOLOGIST: Manav Martines MD ANESTHESIA: General endotracheal anesthesia. PREOPERATIVE DIAGNOSIS Incarcerated umbilical hernia. POSTOPERATIVE DIAGNOSIS Incarcerated umbilical hernia with strangulation of omentum. PROCEDURE PERFORMED Open umbilical hernia repair without mesh. COMPLICATIONS None. CONDITION Stable. BLOOD LOSS Minimal. FINDINGS This patient had approximately 3 cm fascial defect with a large, approximately plum sized hernia protruding through it, and the hernia sac contained only omentum. The omentum was dusky, consistent with strangulation, and so this portion was removed. SPECIMENS Hernia sac and contents. INDICATIONS This is a 63-year-old gentleman who presented to my office actually two days ago with an umbilical hernia that became more painful. I was able to reduce it, at least for the most part, and he felt better, so I scheduled him for a surgery today, but he reports that yesterday it became bigger again and became more painful, and so he knew he had surgery scheduled today, so he just waited for his surgery. When he came in to the preop area and he got checked in, and I saw him before surgery, it was about the size of a golf ball, and his overlying skin was red. There was also some light pink discoloration for about 10 cm all the around the umbilicus. He was requesting to have his umbilical hernia repaired. DESCRIPTION OF PROCEDURE The patient was brought to the operating room and placed upon the operating table. General endotracheal anesthesia was administered. His abdomen was prepped and draped in a sterile fashion. Timeout was completed, and because of the size of the hernia, I made a vertical midline incision from just below the umbilicus to just above the umbilicus going around the patient's left side of his umbilicus. I dissected through the dermis and subcutaneous fat and then dissected all around this very hard and large hernia. I lifted the umbilical skin off the anterior surface of the hernia sac. There was not much tissue there between the skin and the underlying hernia, and I then buttonholed the skin in one place trying to get the umbilical skin off the hernia. I continued to dissect completely around the hernia until I had it completely isolated, and then when I got down to fascia, I actually opened the fascial defect a little bit wider to decompress the incarcerated hernia. I then opened the hernia sac very carefully because I did not know if there was any bowel in it. Once I opened the sac, there was some fluid that I evacuated, and then I noticed that all that was in it was omentum. I opened the sac widely so I could get more of the omentum out, and when I got to healthy omentum, I resected the dusky-looking omentum right the line of demarcation using electrocautery. There were two areas of bleeding which were clamped and made hemostatic with a 3-0 stitch. The omentum was then passed off the field, and the healthy omentum was reduced back inside the abdomen. I then cut off the hernia sac all the way around flush with the fascia, and I cleaned the fascia both on the superficial side and the deep side. I inspected the intestines through the fascial aperture, and all the intestines I could easily view that were near it were healthy. I then closed the peritoneum with a running 3-0 Vicryl suture. After I created enough space in the preperitoneal space and on the superficial side, I elected not to use mesh, although the fascial defect was certainly big enough to warrant it. Because of the incarcerated nature and the redness of the skin, I was afraid of mesh infection. There was enough laxity in the fascia especially after I freed up all the tissue anterior and posterior to the fascia, and I closed it with 0 Ethibond permanent sutures in a vertical fashion. It closed really without any tension. I put many Ethibond sutures in it, probably about 25 to close the defect with 5 mm between the sutures. Once it was closed, the defect felt very sturdy and without any remaining defect. I then irrigated and dried the wound, then closed the subcutaneous tissues with running 3-0 Vicryl sutures, and then I tacked the umbilicus back down to the underlying tissue with a single 3-0 Vicryl suture. I then closed the skin with 3-0 interrupted deep dermal sutures and 4-0 Monocryl running subcuticular stitch. Skin was cleaned and dried, and Steri- Strips were applied. I placed two balled up 2 x 2 gauze soaked in Bacitracin antibiotic ointment into the umbilicus to help to hold it down and then placed sterile surgical dressing over the incision in the umbilicus. I then placed him in an abdominal binder, and then he was awakened and extubated in the operating room and transported to the recovery room in stable condition having tolerated the procedure without any apparent problems. ERIKA
[2018-11-02 19:34] VITALS: BP 140/83
[2018-11-02 19:36] VITALS: BP 131/87
== END 2018-11-02 18:48 | disposition home or self-care (01) ==
LOC: OR 00:12
PROVIDERS: ATTEND Surgery
DX: K42.0 Umbilical hernia with obstruction, without gangrene (principal); I10 Essential (primary) hypertension
CPT/HCPCS: 49587; 88302; 93005; J1100; J2001; J2250; J2405; J2704; J2765; J3010; J0690

== ENCOUNTER → 2018-12-13 | Outpatient (RCR) | payer BC ==
[2018-09-14 14:49] LABS: PLATELET COUNT, AUTOMATED 354 K/uL (150-450)
[2018-09-14 16:33] VITALS: BP 147/102
[2018-10-23 14:10] LABS: PLATELET COUNT, AUTOMATED 183 K/uL (150-450)
[2018-10-23 15:36] VITALS: BP_SYST 145; BP_SYST 153; BP_DIAS 96; BP_DIAS 98
[2018-11-07 15:32] VITALS: BP 158/90
[2018-11-07 16:01] LABS: PLATELET COUNT, AUTOMATED 300 K/uL (150-450)
[2018-11-08 08:14] VITALS: BP 136/87
--- NOTE | 2018-11-08 09:24 | [facility] ONCOLOGY NOTE ---
EVENT DATE: November 08, 2018 DIAGNOSES 1. Polycythemia vera with positive JAK2 V617F mutation. 2. Asthma. CHIEF COMPLAINT The patient is here today for followup of his polycythemia vera. HEMATOLOGY HISTORY The patient is a 62-year-old male who is followed by Dr. Manav Woods, and the patient was found to have erythrocytosis by blood test. His CBC on January 02, 2014, revealed a white blood cell count of 15.3, hemoglobin 20.1, hematocrit 61.7, platelet count 491,000. The patient had a workup for erythrocytosis including erythropoietin, which came at low normal at 2.8, and the normal starts from 2.6. Iron studies showed serum ferritin of 86, serum iron 62, total iron- binding capacity (TIBC) 409, and iron saturation 15%. JAK2 mutation analysis for exon 12 mutation and exon 13 mutation were negative, but JAK2 mutation for V617F mutation was not done. JAK2 analysis came back positive for V617F mutation, confirming the diagnosis of polycythemia vera. The patient started treatment with hydroxyurea on December 19, 2014. HISTORY OF PRESENT ILLNESS Patient is here today for followup of his polycythemia vera. Patient has recently had repair of his umbilical hernia last week. He is really doing very well currently except for some pain at the site of his surgery. PAST MEDICAL HISTORY 1. Asthma. 2. Erythrocytosis. PAST SURGICAL HISTORY Tonsillectomy. FAMILY HISTORY Negative for cancer or blood diseases. SOCIAL HISTORY The patient is with two sons. 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 He quit smoking 25 years ago after one pack a day for 12 to 15 years. He chews tobacco, one can per week, but denies any use of alcohol or illicit drugs. MEDICATIONS 1. Hydroxyurea 500 mg once daily for five days and 1000 mg for two days. 2. Nasonex 17 gm spray daily. 3. Aspirin 81 mg daily. 4. Singulair 10 mg daily. 5. Advair inhalation twice daily. ALLERGIES No known drug allergies. REVIEW OF SYSTEMS CONSTITUTIONAL: No appetite or weight change. No fever, chills or sweating. No recent infection. HEENT: Ears: No tinnitus or hearing problem. Nose: He has nasal discharge. Throat: No sore throat or mouth ulcers. Eyes: No diplopia or visual changes. RESPIRATORY: No shortness of breath. No cough, expectoration or hemoptysis. CARDIOVASCULAR: No chest pain, orthopnea, or paroxysmal nocturnal dyspnea (PND). No edema. No palpitations. GASTROINTESTINAL: Patient has some pain at the site of his surgery recently for umbilical hernia repair. GENITOURINARY: No hematuria or dysuria. MUSCULOSKELETAL: No pain in the muscles, joints or bones. NEUROLOGICAL: No tingling or numbness in the hands or feet. No headaches or convulsions. HEMATOLOGIC/LYMPHATIC: No bleeding or easy bruising. No weakness or fatigued. No enlarged lymph nodes. SKIN: No skin rash or lumps. PSYCHIATRIC: No anxiety or depression. PHYSICAL EXAMINATION GENERAL: Looks stable. Well-developed, well-nourished, and in no acute distress. VITAL SIGNS: Blood pressure 136/87, pulse 65 per minute, respirations 16 per minute, temperature 97.6, pulse oximetry 92% on room air. HEENT: Head: Atraumatic. No sinus tenderness to palpation. Eyes: No icterus or conjunctivitis. Mouth and throat: No oral thrush or mucositis. NECK: Supple. No cervical or supraclavicular lymphadenopathy. LUNGS: Clear to auscultation and percussion bilaterally. HEART: Regular rate and rhythm. No gallops, murmurs, clicks or rubs. ABDOMEN: Soft and lax. No tenderness. No hepatosplenomegaly. No masses. EXTREMITIES: No cyanosis, clubbing or edema. LYMPHATICS: No peripheral lymphadenopathy. NEUROLOGICAL: Conscious, alert and oriented times three. No focal motor or sensory deficits. PSYCHIATRIC: Mood and affect appear normal. SKIN: No skin rash, bruise or purpuric eruption. DIAGNOSTIC DATA CBC showed white count 8.5, hemoglobin 12.9, hematocrit 41.8%, platelets 300,000. Chem panel totally normal except chloride 108, blood sugar 113, AST 58, ALT 95. ASSESSMENT 1. Polycythemia vera with positive JAK2 mutation for V617F mutation. Patient started phlebotomy sessions January 10, 2014, and he started hydroxyurea December 19, 2014. His current hematocrit is 41.8% and hemoglobin 12.9, which is really very reasonable. Platelet count currently is 300,000 and it was 735,000 before. I am planning to continue the same dose of 500 mg for five days and 1000 mg for two days, Monday and . I am planning to check his count with CBC and chem panel every month and I will see him in three months with another CBC and chem panel. I am planning to proceed with phlebotomy if his hematocrit is above 45%. 2. Hepatitis C virus infection with transaminitis. Patient is followed by licensed audiologist. His liver enzymes are getting better lately. PLAN 1. Hydroxyurea 500 mg daily for five days and 500 mg twice daily for two days, Monday and . 2. CBC and chem panel to be checked monthly. 3. Patient to return in three months with CBC and chem panel. 4. Patient to contact us for any new concerns or complaints. ERIKA
[~2018-12-13] MED LIST changes: +DOCU-416 PO; +OXYC-373 PO; +SOFO1TAB2 PO
[2018-12-13 14:57] VITALS: BP 136/93
[2018-12-13 15:16] LABS: PLATELET COUNT, AUTOMATED 164 K/uL (150-450)
== END ==
LOC: ONC 09-14 10:24 → SPU 10-23 13:55
PROVIDERS: ATTEND Internal Medicine Hematology
DX: D45 Polycythemia vera (principal); J45.909 Unspecified asthma, uncomplicated; B19.20 Unspecified viral hepatitis C without hepatic coma; R53.1 Weakness; R53.83 Other fatigue; Z72.0 Tobacco use
CPT/HCPCS: 36415; 82040; 82247; 82310; 82374; 82435; 82565; 82947; 84075; 84132; 84155; 84295; 84450; 84460; 84520; 85025; 99195; 99212

== ENCOUNTER → 2019-01-18 | Outpatient (CLI) | payer BC ==
[2019-01-18 11:26] LABS: INR 1.02
[2019-01-18 11:31] LABS: PLATELET COUNT, AUTOMATED 323 K/uL (150-450)
== END ==
LOC: SPU 10:37
PROVIDERS: ATTEND Nurse Practitioner Adult Health
DX: B18.2 Chronic viral hepatitis C (principal); K74.69 Other cirrhosis of liver
CPT/HCPCS: 36415; 82040; 82105; 82247; 82310; 82374; 82435; 82565; 82947; 84075; 84132; 84155; 84295; 84450; 84460; 84520; 85007; 85027; 85610; 87340

== ENCOUNTER → 2019-01-23 | Outpatient (CLI) | payer BC ==
[~2019-01-23] MED LIST changes: +IOPAMIDOL 76% 100 ML INFUS BTL 100 ML ONE
--- NOTE | 2019-01-23 16:42 | RADIOLOGY IMAGING REPORT ---
FACILITY: [facility] PATIENT NAME: Sukhwinder Grijalva : 1955 MR: [id number] V: [id number] EXAM DATE: ORDERING PHYSICIAN: YENI FAJARDO TECHNOLOGIST: Location: [facility] Patient: Sukhwinder Grijalva : 1955 Visit/Account:[id number] Date of Sevice: 01/23/2019 CT ABDOMEN WITH IV CONTRAST CLINICAL INFORMATION: Chronic hepatitis C, cirrhosis of the liver TECHNIQUE: Axial CT images were obtained through the abdomen during injection of nonionic iodinated intravenous contrast. Imaging was performed in the arterial phase portal venous phase and three-min nikolai delayed phase. Reformatted coronal and sagittal images were also obtained.Dose Lowering Technique One of the following dose optimization techniques was utilized in the performance of this exam: Autom ated exposure control; adjustment of the mA and/or kV according to the patient's size; or use of an i terative reconstruction technique. Specific details can be referenced in the facility's radiology C T exam operational policy. CONTRAST: 75 mL of Isovue 370 IV contrast. COMPARISON: CT abdomen pelvis August 07, 2018. FINDINGS: Lower lung samuels: Limited views lower lung field are unremarkable. Liver: Liver is enlarged measuring 18.3 cm in length. Biliary: Gallbladder appears unremarkable as well as the intra and extra hepatic biliary system. Pancreas: Normal appearance. Spleen: Normal appearance. Adrenal glands: Unremarkable. Kidneys / retroperitoneum: No evidence of nephrolithiasis or hydronephrosis Bowel / peritoneum / mesenteries: The visualized small and large bowel appear unremarkable. Lymph node assessment: There is a 2.1 x 1 cm portacaval lymph node that remain stable Vessels: No significant atherosclerotic calcification seen throughout a nonaneurysmal abdominal aorta and branches. Musculoskeletal / Body wall: There appears to been a umbilical hernia repair IMPRESSION: 1. Hepatomegaly although discrete mass is not demonstrated Stable 2.1 x 1.1 cm portacaval lymph node There appears to been an umbilical hernia repair Report Dictated By: Alma Delia Mcintosh MD at 01/23/2019 4:25 PM Report E-Signed By: Alma Delia Mcintosh MD at 01/23/2019 4:36 PM WSN:[id number]
== END ==
LOC: CT 00:40
PROVIDERS: ATTEND Nurse Practitioner Adult Health
DX: R16.0 Hepatomegaly, not elsewhere classified (principal)
CPT/HCPCS: 74160; 74170; Q9967

== ENCOUNTER 2019-01-25 00:36 | Day surgery (SDC) | payer BC ==
[~2019-01-25] VITALS: Ht 177.8 cm; Wt 78.0 kg
[~2019-01-25 00:36] MED LIST changes: -IOPAMIDOL 76% 100 ML INFUS BTL 100 ML ONE; +LIDOCAINE/SOD BICARB 8.4% SYR ID ONE; +NORMOSOL R SOLN(*) 1000 ML BAG 1,000 ML IV PRN
[2019-01-25] MEDS ORDERED: NORMOSOL R SOLN(*) 1000 ML BAG 1,000 ML IV PRN (06:30)
[2019-01-25] MEDS ORDERED: LIDOCAINE/SOD BICARB 8.4% SYR ID ONE (06:30)
[2019-01-25 11:19] VITALS: BP 127/86
[2019-01-25 14:48] VITALS: BP 121/76
[2019-01-25 15:07] VITALS: BP 108/81
[2019-01-25 15:36] VITALS: BP 122/87
[2019-01-25 15:37] VITALS: BP 106/83
--- NOTE | 2019-01-25 15:41 | Short(Outpt) Discharge Summary ---
Discharge Summary Reason for Hosp/Final Diag: (1) Hepatitis C Status: Chronic Hospital Course & Plan: pt presented for egd and colonoscopy. he tolerated the procedures well. he will be discharged home when criteria met. Discharge Instructions Home Meds Active Scripts Docusate Sodium (COLACE) 100 Mg Capsule, 1 CAP PO BID, #30 CAP 0 Refills TAKE WITH A FULL GLASS OF WATER Prov:JC EPPS MD 11/02/18 Reported Medications Sofosbuvir/Velpatas/Voxilaprev (Vosevi 400-100-100 mg Tablet) 400 Mg-100 Mg-100 Mg Tablet, 1 TAB PO QPM 12/14/18 Hydroxyurea (HYDROXYUREA) 500 Mg Capsule, 500 MG PO DIRECTED, CAPSULE DAILY X 5 DAYS AND BID ON MONDAY & Monday11/08/18 Cetirizine Hcl (ZYRTEC) 10 Mg Tablet, 10 MG PO QDAY PRN for ALLERGY SYMPTOMS, TAB 10/31/18 Mometasone/Formoterol (DULERA 100 MCG/5 MCG INHALER) 13 Gm Inh, 1-2 PUFF INH BID, INH 10/31/18 Lisinopril (LISINOPRIL) 5 Mg Tablet, 1 TAB PO QDAY, TAB 09/20/18 Mometasone Furoate (NASONEX) 17 Gm [place], 17 GM DASHA DAILY, SPRAY 12/19/14 Aspirin (ASPIRIN) 81 Mg Tab.chew, 81 MG PO QDAY, TAB.CHEW TAKE 1 TABLET BY MOUTH EVERY DAY 08/22/14 Montelukast Sodium (Singulair) 10 Mg Tab, 10 MG PO QDAY, 0 Refills 06/15/11 Diet: Regular Activity: As Tolerated Special Instructions: we will call you in 10 days with biopsy results VENICE MULLINS Jan 25, 2019 15:41
== END 2019-01-25 15:51 | disposition home or self-care (01) ==
LOC: OR 00:36
PROVIDERS: ATTEND Surgery
DX: Z12.11 Encounter for screening for malignant neoplasm of colon (principal); K57.30 Diverticulosis of large intestine without perforation or abscess without bleeding
CPT/HCPCS: 00813; 43239; 45378; 88305; 88313; 88342; J2704

== ENCOUNTER → 2019-03-05 | Outpatient (CLI) | payer BC ==
[~2019-03-05] MED LIST changes: -LIDOCAINE/SOD BICARB 8.4% SYR ID ONE; -NORMOSOL R SOLN(*) 1000 ML BAG 1,000 ML IV PRN
== END ==
LOC: SPU 08:34
PROVIDERS: ATTEND Nurse Practitioner Adult Health
DX: K74.69 Other cirrhosis of liver (principal)
CPT/HCPCS: 36415; 87340

== ENCOUNTER → 2019-04-10 | Outpatient (CLI) | payer BC ==
[2019-04-10 13:25] VITALS: BP 129/89
[2019-04-10 13:26] LABS: PLATELET COUNT, AUTOMATED 327 K/uL (150-450)
[2019-04-10 13:52] LABS: INR 1.03
== END ==
LOC: SPU 09:16
PROVIDERS: ATTEND Nurse Practitioner Adult Health
DX: B18.2 Chronic viral hepatitis C (principal); K74.69 Other cirrhosis of liver
CPT/HCPCS: 36415; 82040; 82105; 82247; 82310; 82374; 82435; 82565; 82947; 84075; 84132; 84155; 84295; 84450; 84460; 84520; 85025; 85610; 87340; 87522